=== PATIENT | male | born 1995 | race Caucasian/White ===

== ENCOUNTER 2016-06-22 22:47 | Inpatient (IN) | payer BC, OTHER ==
[~2016-06-22] VITALS: Ht 182.9 cm; Wt 76.8 kg
[~2016-06-22 22:47] MED LIST: ALPR-411 PO; BNT10 PO; IBUP-1050 PO; OXYC5TAB PO; SERT-234 PO
[2016-06-22] MEDS ORDERED: DULO60CA44 PO (23:21)
[2016-06-22] MEDS ORDERED: CLON1TAB3 PO (23:21)
--- NOTE | 2016-06-23 00:04 | EMERGENCY ROOM VISIT NOTE ---
History Report prepared by Marco: Alfonzo Moore Under the Supervision of: Dr. Andreina Rascon D.O. First contact with patient: 23:23 Chief Complaint: MENTAL HEALTH EVALUATION Stated Complaint: MHID History of Present Illness The patient is a 21 year old male with a history of anxiety and depression since high school who presents to the Emergency Room for an acute mental health evaluation. The patient has been struggling with a gambling addiction for some time. Today he lost more money than he had in his account which exacerbated his depression to the point that he considered overdosing today. The patient has had thoughts of suicide in the past but has never made any attempts. The patient called [facility] today and was referred to the ED. The patient sees a therapist in [employer] [facility]. He notes that he feels like a disappointment to his family. The family is aware of his gambling addiction. The patient is a [employer] student who recently finished another semester and passed all of his classes. He does not drink alcohol but occasionally smokes marijuana. The patient has been experiencing intermittent abdominal pain and decreased appetite. Source of History: patient Onset: today Position: other (psyche) Quality: other (suicidal ideation) Timing: other (acute) Modifying Factors (Worsening): other (gambling addiction) Associated Symptoms: + abdominal pain Review of Systems See HPI for pertinent positives & negatives. A total of 10 systems reviewed and were otherwise negative. Past Medical & Surgical Medical Problems: (1) Anxiety Family History Hypertension Social History Smoking Status: Never Smoker Alcohol Use: none Drug Use: none Marital Status: single Housing Status: lives with roommate Occupation Status: [employer] student Current/Historical Medications Scheduled Clonazepam (Klonopin), 1 MG PO QID Duloxetine Hcl (Cymbalta), 60 MG PO DAILY Scheduled PRN Alprazolam (Xanax), 0.5 MG PO BID PRN for Anxiety Allergies Coded Allergies: Milk (Verified Adverse Reaction, Intermediate, ESOPAGITIS, 06/22/16) Physical Exam Vital Signs Date Time Temp Pulse Resp B/P Pulse Ox O2 Delivery O2 Flow Rate FiO2 06/22/16 23:00 37.2 113 19 135/102 97 Room Air Physical Exam General: Pleasant, cooperative. HEENT: Head - normocephalic and atraumatic Pupils are equal, round, and reactive to light. Extraocular eye muscles are intact, and sclera are anicteric. Nose - moist nasal mucosa without discharge. Mouth - moist buccal mucosa. Oropharynx is nonerythematous and there is no tonsillar exudate or edema noted. Neck: Supple; no JVD, nuchal rigidity, cervical lymphadenopathy. Heart: Regular rate and rhythm. There is a normal S1 and S2 with no murmurs, clicks, or gallops appreciated. Lungs: Clear to auscultation bilaterally with no wheezes, rales, or rhonchi. Abdomen: Soft, completely nontender, nondistended, with good bowel sounds. There are no palpable pulsatile masses or hepatosplenomegaly. There is no guarding, rigidity, or rebound noted. Extremities: No evidence of cyanosis, clubbing, or edema. There are easily palpable peripheral pulses. Skin: warm and dry with good turgor and no rashes. Psych: Extremely flat affect, admits to suicidal ideation with plans to overdose. Medical Decision & Procedures Laboratory Results 06/22/16 23:21 06/22/16 23:21 Test 06/22/16 22:54 06/22/16 23:21 Urine Color ORANGE Urine Appearance CLEAR (CLEAR) Urine pH 6.0 (4.5-7.5) Urine Specific [place] 1.031 (1.000-1.030) Urine Protein NEG (NEG) Urine Glucose (UA) NEG (NEG) Urine Ketones TRACE (NEG) Urine Occult Blood NEG (NEG) Urine Nitrite NEG (NEG) Urine Bilirubin NEG (NEG) Urine Urobilinogen NEG (NEG) Urine Leukocyte Esterase TRACE (NEG) Urine WBC (Auto) 1-5 /hpf (0-5) Urine RBC (Auto) 0-4 /hpf (0-4) Urine Hyaline Casts (Auto) 1-5 /lpf (0-5) Urine Epithelial Cells (Auto) 5-10 /lpf (0-5) Urine Bacteria (Auto) NEG (NEG) Urine Opiates Screen NEG (NEG) Urine Methadone, Qualitative NEG (NEG) Urine Barbiturates NEG (NEG) Urine Phencyclidine (PCP) Level NEG (NEG) Ur Amphetamine/Methamphetamine NEG (NEG) MDMA (Ecstasy) Screen NEG (NEG) Urine Benzodiazepines Screen POS (NEG) Urine Cocaine Metabolite NEG (NEG) Urine Marijuana (THC) POS (NEG) Red Blood Count 5.20 M/uL (4.7-6.1) Mean Corpuscular Volume 90.8 fL (80-100) Mean Corpuscular Hemoglobin 33.1 pg (25-34) Mean Corpuscular Hemoglobin Concent 36.4 g/dl (32-36) RDW Standard Deviation 39.7 fL (36.4-46.3) RDW Coefficient of Variation 11.9 % (11.5-14.5) Mean Platelet Volume 10.2 fL (7.4-10.4) Anion Gap 6.0 mmol/L (3-11) Estimated GFR () 100.3 Estimated GFR (Non- 86.5 BUN/Creatinine Ratio 11.6 (10-20) Calcium Level 9.1 mg/dl (8.5-10.1) Total Bilirubin 1.4 mg/dl (0.2-1) Direct Bilirubin 0.2 mg/dl (0-0.2) Aspartate Amino Transf (AST/SGOT) 8 U/L (15-37) Alanine Aminotransferase (ALT/SGPT) 20 U/L (12-78) Alkaline Phosphatase 54 U/L (45-117) Total Protein 7.4 gm/dl (6.4-8.2) Albumin 4.5 gm/dl (3.4-5.0) Thyroid Stimulating Hormone (TSH) 2.710 uIu/ml (0.300-4.500) Salicylates Level < 1.7 mg/dl (2.8-20) Acetaminophen Level < 2 ug/ml (10-30) Ethyl Alcohol mg/dL < 3.0 mg/dl (0-3) Laboratory results per my review. Procedure Medications administered include Vistaril PO. ED Course 2335: Past medical records reviewed. The patient was evaluated in room A7. A complete history and physical exam was performed. Labs were drawn as above. 2350: The patient will be evaluated by Ashkan Vali. 0040: The patient is medically cleared. 0048: The patient was asleep. I woke him up and gave him the results. 0200: Ashkan Vail has accepted the patient. 0212: Vistaril 25 mg PO. Medical Decision The patient is a 21 year old male who presents to the ED for a mental health evaluation. Differential diagnosis includes mood disorder, addiction, thought disorder, suicidal ideations. Laboratory interpretation: Normal white count, stable H&H, normal TSH and renal function, total bilirubin 1.4, other LFTs normal, glucose normal. Tox screen positive for marijuana and benzos. Negative alcohol Tylenol and aspirin. Urine has trace ketones and leukocyte esterase. This is a 21-year-old male patient with a history of depression who presents to the emergency department with worsening depression and suicidal ideation. The patient is willing to admit herself voluntarily for inpatient psychiatric care Impression Primary Impression: Suicidal ideation Scribe Attestation The scribe's documentation has been prepared under my direction and personally reviewed by me in its entirety. I confirm that the note above accurately reflects all work, treatment, procedures, and medical decision making performed by me. Departure Information Dispostion Mental Health Acute Care Referrals No Doctor, Assigned (PCP) Patient Instructions [facility]
[2016-06-23 00:05] LABS: HEMATOCRIT 47.2 % (42-52); MEAN CELL VOLUME 90.8 fL (80-100); MEAN CORPUSCULAR HEMOGLOBIN 33.1 pg (25-34); MEAN CORPUSCULAR HGB CONC 36.4 g/dl (32-36); MEAN PLATELET VOLUME 10.2 fL (7.4-10.4); PLATELET COUNT 167 K/uL (130-400); WHITE BLOOD COUNT 8.44 K/uL (4.8-10.8)
[2016-06-23 00:07] LABS: URINE APPEARANCE CLEAR (CLEAR); URINE COLOR ORANGE; URINE NITRITE NEG (NEG); URINE SPECIFIC GRAVITY 1.031 (1.000-1.030); UROBILINOGEN NEG (NEG)
[2016-06-23 00:08] LABS: MANUAL MICROSCOPIC REQUIRED? NO; REVIEW REQ? NO
[2016-06-23 00:09] LABS: URINE BILIRUBIN NEG (NEG)
[2016-06-23 00:26] LABS: ALT/SGPT 20 U/L (12-78); AST/SGOT 8 U/L (15-37); BLOOD UREA NITROGEN 14 mg/dl (7-18); BUN/CREATININE RATIO 11.6 (10-20); CALCIUM 9.1 mg/dl (8.5-10.1); CARBON DIOXIDE 31 mmol/L (21-32); CHLORIDE 105 mmol/L (98-107); GLUCOSE 76 mg/dl (70-99); POTASSIUM 3.9 mmol/L (3.5-5.1); SODIUM 142 mmol/L (136-145)
[2016-06-23 00:28] LABS: BENZODIAZEPINE, URINE POS (NEG); COCAINE,URINE NEG (NEG); PHENCYCLIDINE, URINE NEG (NEG)
[2016-06-23 00:36] LABS: ACETAMINOPHEN < 2 ug/ml (10-30)
[2016-06-23 00:37] LABS: ALKALINE PHOSPHATASE 54 U/L (45-117)
[2016-06-23] MEDS ORDERED: NURSING VERBAL MED ORDER ONE (02:00)
[2016-06-23] MEDS ORDERED: hydrOXYzine HCL 25 MG TAB PO STA (02:12)
[2016-06-23 02:29] VITALS: BP 128/87; PULSE 85; TEMP 37.2; Ht 182.9 cm; Wt 76.8 kg
[2016-06-23 02:47] VITALS: O2SAT 99
[2016-06-23] MEDS ORDERED: BISMUTH SUBSALICYLATE PER ML OMNICELL CHARGE PO PRN (03:00)
[2016-06-23] MEDS ORDERED: MAGNESIUM HYDROXIDE SUSP 30 ML UDC PO PRN (03:00)
[2016-06-23] MEDS ORDERED: hydrOXYzine HCL 25 MG TAB PO PRN (03:00)
[2016-06-23] MEDS ORDERED: SODIUM CHLORIDE 0.65% NA SOLN 45 ML (OCEAN) PRN (03:00)
[2016-06-23] MEDS ORDERED: ALUMINUM/MAGNESIUM SUSP 30 ML UDC PO PRN (03:00)
[2016-06-23] MEDS: hydrOXYzine HCL 25 MG TAB PO PRN ×2 (03:05→22:57)
[2016-06-23 06:48] VITALS: BP_SYST 108; BP_SYST 113; BP_DIAS 71; BP_DIAS 78; PULSE 48; PULSE 86; TEMP 36.8
[2016-06-23] MEDS ORDERED: CLONAZEPAM 1 MG TAB PO ONE (10:35)
[2016-06-23] MEDS ORDERED: DULOXETINE HCL 60 MG CAP PO ONE (11:00)
--- NOTE | 2016-06-23 11:22 | Psychiatric History & Physical ---
History Date of Service June 23, 2016. Identifying Data Marvin Khan is a 21-year-old male [employer] student from [place] who has a history of depression and anxiety, follows with Dr. Vale, and presented to the ER with suicidal ideation and a plan to overdose. He had called [facility] and was referred to the emergency room, where he was admitted voluntarily. Chief Complaint "I just feel really guilty and depressed all the time, just really suicidal". History of Present Illness Patient presented to the emergency room stating he has a gambling problem and lost a lot of money playing poker yesterday, which resulted in suicidal thoughts. He stated "I feel inside." He reports worsening depression over the past couple of months, with tearfulness, sadness, guilt, anhedonia, anergia, social withdrawal, hopelessness, and disrupted sleep. He endorses decreased appetite and a 30 pound weight loss in the past 8 months, and also has GI issues for which he was hospitalized last semester. He states he called a suicide hotline yesterday and they recommended he come to the hospital. He reports lifelong problems with depression and anxiety, with suicidal thoughts and middle school, which then returned yesterday in the context of losing money gambling. He states "money is not the problem, the guilt with my parents, lying to them, taking their money." He states he struggled with gambling last semester, has been spending money that his parents were sending him to "live off of, but I never use it for that, just gambling, it's the only thing that's fine for me." He says he's lost about $10,000 this school year by gambling. He told his parents about it over New Year's break, but felt they "never cared, " meaning they were only concerned about the money he lost, not that he is "not happy." He feels that his parents don't understand about his depression, despite his attempt to "reach out" to them. He states that yesterday he "broke down, had a realization that I need to get help." He was thinking about " taking my own life, that really scared me," thinking that he would overdose on his prescription medications, just down bottles of pills." He feels "alone, no one loves me, no one will really care." He feels he has no supports, and no one understands what he is going through. He says that he "always puts on a mask" so that others don't know how he is feeling, but his mood has been "unhappy for a long time." He denies problems with concentration, stating that he does well in school, despite not really studying or applying himself. He endorses chronic insomnia for years, where he gets only a few hours of sleep a night. He denies irritability and anger outbursts. He reports "constant anxiety " that has been going on "for as long as I can remember." He reports daily panic attacks with chest tightness, increased heart rate, shortness of breath, heart palpitations, fear of or heart attack, and GI discomfort. He states he is taking Xanax up to 4mg a day, which he knows is more than he is prescribed , and says he is not even sure what the prescribed dose is. Even with 4mg of Xanax and 4mg of Klonopin daily, he says his anxiety is still high and constant. He says Dr. Vale has instructed him to decrease the dose but he has not done it. He says he has been on Cymbalta for about 2 months and 60mg for about a month. He admits he has not told Dr. Vale about his gambling problem, and is not in therapy. He admits to smoking marijuana and taking more Xanax than is prescribed at times. Dr. Vale was contacted by unit staff, and reported that the patient is prescribed both clonazepam and alprazolam for severe anxiety, and that this has been the best, nation he has found for his anxiety. He has tried multiple SSRI and SNRIs, including sertraline, fluoxetine , and Xanax XR. At the last appointment on Thursday, they discussed tapering down on his Klonopin by 0.5 mg per week as tolerated. Dr. Vale is aware that he overuses his Xanax at times, but believes it is in the context of managing his anxiety. He denies a history of devon, eating disorder, or psychotic symptoms. Spoke with Dr. Vale who started seeing him 4-6 months ago, previously treated by [facility], and had not disclosed his gambling issues to him or to [facility]. He had initially tried him on fluoxetine, but had GI side effects so switched to duloxetine, and has been trying to switch him from Xanax to Klonopin. He confirmed his current doses as entered in med rec. Past Psychiatric History Current OP Treatment: psychiatrist (Dr. Vale) Prior OP Treatment: psychiatrist, therapist ("I've tried that, it's hard for me." Saw Jeffrey Jamil last semester a couple times and felt unable to open up.) Prior Psych Hospitalizations: none Access to a Gun: No Suicide Attempts: No Past Medication Trials amitriptyline - in HS for headaches fluoxetine - per Dr. Vale, patient doesn't recall sertraline - ineffective at 200mg, stopped on his own venlafaxine XR - took for 1-2 weeks and stopped because switched to sertraline ( not sure why) Xanax XR lorazepam Past Medical/Surgical History None. Allergies Allergies: Coded Allergies: Milk (Verified Adverse Reaction, Intermediate, ESOPAGITIS, 06/22/16) Home Medications Scheduled Clonazepam (Klonopin), 1 MG PO QID Duloxetine Hcl (Cymbalta), 60 MG PO DAILY Scheduled PRN Alprazolam (Xanax), 0.5 MG PO BID PRN for Anxiety Family History Hypertension History of Suicide: No History of Substance Abuse: No Psychiatric History: No Alcohol Use Alcohol Use In Past 12 Months: Yes (Rare use - last drink on ARIELLE, typically drinks to intoxication when drinks.) AUDIT Total Score: 0 Smoking Use Smoking Status: Never Smoker Substance History Smoke marijuana 1-2 times a month. Admits to taking more Xanax than he is prescribed. Personal History Lives in: From [place]; [employer] student who lives off campus in apartment with roommate. 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 Relationship History: never Children: None. Spiritual Affiliation: Denies Legal History: none Psychological Trauma History: Other (Denies.) Additional Comments: Lives at home with parents and 17 year old brother. Review of Systems 10 systems reviewed and are negative except as stated above. Examination Vital Signs Vital Signs Past 12 Hours Date Time Temp Pulse Resp B/P Pulse Ox O2 Delivery O2 Flow Rate FiO2 5/8/17 06:48 36.8 48 16 108/71 86 113/78 06/23/16 02:47 78 16 113/75 99 06/23/16 02:29 37.2 85 19 128/87 Laboratory Results Last 24 Hours Test 06/22/16 22:54 06/22/16 23:21 Urine Color ORANGE Urine Appearance CLEAR Urine pH 6.0 Urine Specific [place] 1.031 Urine Protein NEG Urine Glucose (UA) NEG Urine Ketones TRACE Urine Occult Blood NEG Urine Nitrite NEG Urine Bilirubin NEG Urine Urobilinogen NEG Urine Leukocyte Esterase TRACE Urine WBC (Auto) 1-5 /hpf Urine RBC (Auto) 0-4 /hpf Urine Hyaline Casts (Auto) 1-5 /lpf Urine Epithelial Cells (Auto) 5-10 /lpf Urine Bacteria (Auto) NEG Urine Opiates Screen NEG Urine Methadone, Qualitative NEG Urine Barbiturates NEG Urine Phencyclidine (PCP) Level NEG Ur Amphetamine/Methamphetamine NEG MDMA (Ecstasy) Screen NEG Urine Benzodiazepines Screen POS Urine Cocaine Metabolite NEG Urine Marijuana (THC) POS White Blood Count 8.44 K/uL Red Blood Count 5.20 M/uL Hemoglobin 17.2 g/dL Hematocrit 47.2 % Mean Corpuscular Volume 90.8 fL Mean Corpuscular Hemoglobin 33.1 pg Mean Corpuscular Hemoglobin Concent 36.4 g/dl RDW Standard Deviation 39.7 fL RDW Coefficient of Variation 11.9 % Platelet Count 167 K/uL Mean Platelet Volume 10.2 fL Sodium Level 142 mmol/L Potassium Level 3.9 mmol/L Chloride Level 105 mmol/L Carbon Dioxide Level 31 mmol/L Anion Gap 6.0 mmol/L Blood Urea Nitrogen 14 mg/dl Creatinine 1.20 mg/dl Estimated GFR () 100.3 Estimated GFR (Non- 86.5 BUN/Creatinine Ratio 11.6 Random Glucose 76 mg/dl Calcium Level 9.1 mg/dl Total Bilirubin 1.4 mg/dl Direct Bilirubin 0.2 mg/dl Aspartate Amino Transf (AST/SGOT) 8 U/L Alanine Aminotransferase (ALT/SGPT) 20 U/L Alkaline Phosphatase 54 U/L Total Protein 7.4 gm/dl Albumin 4.5 gm/dl Thyroid Stimulating Hormone (TSH) 2.710 uIu/ml Salicylates Level < 1.7 mg/dl Acetaminophen Level < 2 ug/ml Ethyl Alcohol mg/dL < 3.0 mg/dl Mental Examination During interview pt is: alert and oriented, cooperative Appearance: appropriately dressed, appropriately groomed, appeared stated age Eye contact is: poor Motor behavior is: steady gait & station, no abnormal motor movements Speech: other (slowed, monotone) Affect: depressed, constricted Mood is: depressed, anxious Thought process: goal directed Thought content: reality based without delusions Suicidal thought are: present, Plan: present, Intent: denied Homicidal thoughts are: denied Hallucinations: denies auditory, denies visual Cognition: memory grossly intact, attention grossly intact, language grossly intact Intelligence estimated to be: consistent with level of education Insight: impaired Judgement: impaired Impression / Recommendations Impression 21 y/o [employer] student from [place] with depression, anxiety and a gambling problem who presents with suicidal thoughts to OD on medications in the context of losing $10,000 of his parents' money by gambling. Inventory Assets Strengths: good student, supportive family Risk Factors Assessment Male: Yes : Yes /single/: Yes Mental Health Diagnoses: Yes Previous attempt: No Family history of suicide: No Previous psychiatric stay: No Hopelessness: Yes Smoker: No Protective Factors Assessment Mosque beliefs: No : No Responsible for young children: No Employed: No Stable relationships: No Supportive family: No Good rapport with provider: Yes Recommendations (1) Depression 06/23 -Increase duloxetine to 90 mg daily. -Educated the patient about his diagnoses and the need to engage in therapy, work on healthy ways to cope, and the discharge safety plan. -Encourage group attendance and participation. -Family meeting with parents. We'll need a good safety plan prior to going home , including no access to guns or large amounts of medications, and a plan to have somebody monitor and dispense his benzodiazepines due to overuse. -Care coordinated with outpatient psychiatrist, Dr. Vale. (2) Panic disorder Increase duloxetine to 90 mg daily. Confirm doses of clonazepam and alprazolam with Dr. Vale. For now we will continue them due to patient's reports of high anxiety, but Dr. Vale was in favor of starting a slow clonazepam taper, as he had instructed the patient at his last appointment to start decreasing by 0.5 mg a week. Discussed the importance of being in therapy to address his chronic mood and anxiety disorders and a gambling problem. He is resistant to this idea, we'll continue to explore. (3) Benzodiazepine dependence Confirm doses with Dr. Vale. Continue clonazepam 1 mg 4 times a day and alprazolam 0.5 mg twice a day when necessary panic for now, but he is to start a taper off of clonazepam by decreasing by 0.5 mg a week, and can initiate this here once he is less anxious. Drug screen positive for cannabis. Patient minimizes his use, but was advised of the risks of ongoing substance use, and the recommendations to abstain from alcohol and other abusable substances, especially while taking daily benzodiazepines. Would avoid controlled substances when possible due to the risks of misuse or abuse. (4) Impulse control disorder CPT Code Initial Hospital Care: 45089 Problem Qualifiers (1) Depression: Depression Type: major depressive disorder Major depression recurrence: recurrent Major depression episode severity: severe Psychotic features: without psychotic features
[2016-06-23] MEDS: CLONAZEPAM 1 MG TAB PO SCH ×3 (12:03→21:12)
[2016-06-23] MEDS: ALPRAZOLAM 0.5 MG TAB PO PRN ×2 (13:02→20:22)
--- NOTE | 2016-06-23 14:31 | Medical Student: BHU Only ---
Psychiatric Evaluation IDENTIFYING DATA: Marvin Khan is a 21yo male who currently lives in [place] with a roommate. Marvin Khan was brought to the hospital by EMS and admitted to the [facility] on a 201 commitment. Patient has longstanding history of depression and anxiety and admits to a gambling addiction. Information provided by the patient is considered to be reliable. CHIEF COMPLAINT: "Feeling really guilty, really depressed, and anxious all the time" "Feeling suicidal". HISTORY OF PRESENT ILLNESS: Pt states that he has been "unhappy for a long time" and yesterday he "broke down". Patient had feelings of being alone and of no one caring for him which lead to SI with a plan of "downing pills" using medications he has been prescribed. Concerned by these thoughts, PT contacted a crisis hotline twice resulting in a suggestion of going to the emergency department. Patient reports feeling anxious and depressed for "as long as I can remember" and admits to SI once or twice during middle school but nothing since until yesterday. Nic also states he lost a lot of money recently playing poker after not playing significantly since last semester resulting in significant guilt. Patient feels he "messed up" and that he is "sick of lying" to parents, "sick of taking money and losing it", and that he just wants to get better. Patient admits to loosing 10k in last 2yrs, claiming it is the only thing he found fun. Marvin reports telling his parents of how he was feeling as well as his gambling and loses over winter break, saying they focused more on the money and "didn't get it". Patient additionally reports decreased appetite resulting in a 30lbs weight loss since the beginning of the academic year, years of insomnia that has worsened recently, constant baseline anxiety despite medications, and daily panic attacks that lead to chest tightness, increased HR, palpitations, feeling like he is going to or have a heart attack which are improved with Xanax. Also reports depression and decreased energy ("hard to get up in the morning") which has impacted academic performance. Denies irritability, decreased concentration, and symptoms of devon. Risk of violence to self within the last 6 months: no Risk of violence to others within the last 6 months: no CURRENT MEDICATIONS: Reported Home Medications Medications Dose Route/Sig Max Daily Dose Days Date Category Klonopin (Clonazepam) 1 Mg Tab 1 Mg PO QID 06/22/16 Reported Cymbalta (Duloxetine Hcl) 60 Mg Cap 60 Mg PO DAILY 06/22/16 Reported Xanax (Alprazolam) 0.5 Mg Tab 0.5 Mg PO BID PRN 12/16/15 Reported Patient admits to taking 2-3mg as single dose for daily acute anxiety episodes PAST PSYCHIATRIC HISTORY: Psychiatrist: Dr. Vale Therapist: None - previously Jeffrey Jamil Fall 2015 Current outpatient mental health treatment: Cymbalta, Xanax, Klonopin. Prior psychiatric hospitalizations: None. Prior suicide attempts: No. Prior medication trials: Zoloft 200mg - "didn't work", chose to stop Amitriptyline - used for headaches Effexor - taken for 1 or 2 weeks then stopped, switched to Zoloft by provider PAST MEDICAL HISTORY: Current primary care practitioner is [facility]. medical history: None history of head injury: None history of seizure: None history of iv drug use: None ALLERGIES: Milk. FAMILY HISTORY: Mental Health: None Substance Abuse: None Suicide: None SUBSTANCE USE HISTORY: Tobacco use hx: Never Illicit substance use hx: Marijuana - 1 to 2x per month PERSONAL HISTORY: From: [place] Siblings: 1 brother 17yo Support System: Denies adequate support from family - parents "don't understand what I'm going through" and doesn't wish to see them which makes him feel guilty Education: [employer] with major in academics, usually a B student - admits to not applying himself. 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 Children: None. Spiritual Affiliation: None. Legal History: None. Physical abuse history: None Emotional/psychological abuse history: None Sexual abuse history: None. PHYSICAL EXAM: Complete physical exam completed in emergency department by Dr. Rascon. MENTAL STATUS EXAM: Appearance is that of a healthy but thin male who appears his stated age. The patient is cooperative with the interview. Eye contact is inconsistent - makes initial contact with questions, flits away or looks down. Motor behavior is normal Speech: normal tone, low volume and somewhat slow rate. Mood: "Feeling really guilty, really depressed, and anxious". Affect: Appropriate, restricted-blunted, congruent with stated mood - became visibly upset when discussing Xanax dosages Thought process: goal directed Thought content: largely appropriate - admits to SI yesterday Perception: No evidence of depersonalization, illusions, or hallucinations. Cognition: The patient is alert and oriented Insight is estimated to be limited: Emotionally- identifies what he is feeling. Behaviorally poor - money/degree of impulsive gambling behavior treated as non -priority/insignificant. Judgment is estimated to be limited: Emotionally- sought help when SI began. Behaviorally - 10k loss in gambling, states he will be able to earn more to make up for it. RISK ASSESSMENT: * Risk factors: Male, , single,Health Problems, Mental Health Diagnoses (depression, personality disorder), Substance Use Disorders, Hopelessness, Lack of support system * Protective factors: Good rapport with provider DIAGNOSTIC IMPRESSION: Patient is 21yo male with long-term history of depression and anxiety who developed acute feelings of SI following academic and additional stressors associated with his gambling addiction. Potential antisocial/narcissistic personality tendencies with willful disregard of law, lying behavior in order to maintain gambling habit, displacement of blame to parents (told them - didn' t do anything, don't understand me, have never understood me, focused on the money), and incomprehension of financial losses significance. Limited behavioral insight/judgment (can earn more to make up for losses) in regards to impulsive control issue leading to gambling behaviors. Patient became visibly upset when Xanax dosages were discussed stating he has been taking more than prescribed daily for his anxiety and the PRN amount would not be enough - addiction is a concern. DSM-V DIAGNOSIS: RECOMMENDATIONS: 1. Anxiety a. Continue Klonopin 1mg QID for maintenance with Xanax PRN as needed for acute episodes b. Vistaril PRN for acute exacerbation 2. Depression/SI a. Increase Cymbalta dose to 90mg b. Suicide precautions 15min checks c. Family meeting to possibly enhance support system 3. Impulse Control Disorder/Gambling addiction a. Decrease benzo dosages to mitigate impulse behavior b. Increase antidepressant dosages - pt claims he gambles because it is the only thing he enjoys 4. Milk allergy a. Lactose free diet plan 5. Aftercare Planning: a. Aftercare appointment with Dr. Vale - establish plan for long distance care when PT returns to [place] b. Establish care with therapist for counseling c. Gambling addiction intervention information - gamblers anonymous, etc. Date of Service: June 23, 2016.
[2016-06-24] MEDS: hydrOXYzine HCL 25 MG TAB PO PRN ×3 (03:03→23:29)
[2016-06-24 03:09] VITALS: BP_SYST 122; BP_DIAS 80; BP_DIAS 86; PULSE 65; TEMP 36.3
[2016-06-24 07:58] VITALS: BP 123/77; PULSE 64; TEMP 36.6
[2016-06-24] MEDS: CLONAZEPAM 1 MG TAB PO SCH ×3 (08:01→21:59)
[2016-06-24] MEDS: DULOXETINE (CYMBALTA) 30 MG CAP PO SCH (08:01)
[2016-06-24] MEDS ORDERED: DULOXETINE HCL 60 MG CAP PO SCH (09:00)
[2016-06-24] MEDS: ALPRAZOLAM 0.5 MG TAB PO PRN ×2 (10:05→19:19)
--- NOTE | 2016-06-24 13:08 | Psychiatric Progress Notes ---
Progress Note Date of Service June 24, 2016. Interval History 21 yo male admitted on a voluntary basis on 06/23/16 with severe depression, suicidality and gambling addiction. Chief Complaint "Not good (family meeting)". Subjective Patient was seen & assessed interval progress reviewed with Treatment Team. The patient had a family meeting that he felt "sucked". His mother was the only one there, not wanting to see his father. They talked about his gambling and the trust that he has broken with him parents. He takes full credit for that, although minimizes the severity of it. What he is upset about is that he does not feel that his father is remotely willing to see that the patient is depressed, and Marvin believes that his depression drives his gambling. He feels emotionally abused and belittled by his father's attitude, going so far as to say that he feels "intimidated" by him. It has been suggested that he meet with his father while here in the hospital but the patient doesn't think that he's ready, and says "I don't like to think about it". He says that his mood is upset, anxious. he reports that he woke up in a panic last night, requiring prn medication. He has not thought of suicide today. 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 he says that his gambling was greater last semester, less this semester, and contends that he does it for fun, "its the only thing that I find to be fun" and does not see it as a problem. Review of Systems Constitutional: No chills, No fatigue, No fever, No problem reported, No sweats , No weakness, No weight loss ENT: No dental problems, No hearing loss, No nasal symptoms, No problem reported, No sore throat, No tinnitus, No trouble swallowing, No unusual epistaxis Respiratory: No cough, No dyspnea at rest, No dyspnea on exertion, No hemoptysis, No problem reported, No shortness of breath, No sputum, No wheezing Cardiovascular: No PND, No chest pain, No claudication, No edema, No orthopnea , No palpitations, No problem reported Abdomen: No GI bleeding, No constipation, No diarrhea, No nausea, No pain, No problem reported, No vomiting Musculoskeletal: No calf pain, No joint pain, No muscle pain, No problem reported, No swelling Neurologic: No balance problems, No memory loss, No numbness/tingling, No paralysis, No problem reported, No vertigo, No weakness Psychiatric: + anxiety, + depression symptoms Integumentary: No bleeding, No color change, No itch, No new/changing skin lesions, No problem reported, No rash Sleep Information Total Hours of Sleep: 5.50 Meal Information Percent of Breakfast Consumed: 100 Percent of Lunch Consumed: 100 Percent of Dinner Consumed: 100 Mental Status Exam During interview pt is: alert and oriented, cooperative Appearance: appropriately dressed, appropriately groomed, appeared stated age Eye contact is: poor Motor behavior is: steady gait & station, no abnormal motor movements Speech: other (slowed, monotone) Affect: depressed, flat, constricted Mood is: depressed, anxious Thought process: goal directed Thought content: reality based without delusions Suicidal thought are: present, Plan: present, Intent: denied Homicidal thoughts are: denied Hallucinations: denies auditory, denies visual Cognition: memory grossly intact, attention grossly intact, language grossly intact Intelligence estimated to be: consistent with level of education Insight: impaired Judgement: impaired Impression Difficult meeting with mother. He holds a lot of anger at his parents for perceived lack of support or belief in his depression, and wants to see his gambling as a symptom of his depression. We review criteria for Gambling Disorder, and he meets the required 4 criteria of 12. I have encourage him to continue to process his family meeting individually and in group and to continue to consider a meeting with his father. Dr. Vale his OP psychiatrist has recommeded a slow klonopin taper, 0.5 mg. per week and so will reduce his mid day dose by 0.5. Plan (1) Depression 06/23 -Increase duloxetine to 90 mg daily. -Educated the patient about his diagnoses and the need to engage in therapy, work on healthy ways to cope, and the discharge safety plan. -Encourage group attendance and participation. -Family meeting with parents. We'll need a good safety plan prior to going home , including no access to guns or large amounts of medications, and a plan to have somebody monitor and dispense his benzodiazepines due to overuse. -Care coordinated with outpatient psychiatrist, Dr. Vale. 06/24 - Family meeting with mother today - Encourage meeting with father as well (2) Panic disorder Increase duloxetine to 90 mg daily. Confirm doses of clonazepam and alprazolam with Dr. Vale. For now we will continue them due to patient's reports of high anxiety, but Dr. Vale was in favor of starting a slow clonazepam taper, as he had instructed the patient at his last appointment to start decreasing by 0.5 mg a week. Discussed the importance of being in therapy to address his chronic mood and anxiety disorders and a gambling problem. He is resistant to this idea, we'll continue to explore. 06/24 - BZD dosing confirmed with OP provider. Will reduce total daily dose by 0.5 mg weekly - Continue other meds. (3) Benzodiazepine dependence Confirm doses with Dr. Vale. Continue clonazepam 1 mg 4 times a day and alprazolam 0.5 mg twice a day when necessary panic for now, but he is to start a taper off of clonazepam by decreasing by 0.5 mg a week, and can initiate this here once he is less anxious. Drug screen positive for cannabis. Patient minimizes his use, but was advised of the risks of ongoing substance use, and the recommendations to abstain from alcohol and other abusable substances, especially while taking daily benzodiazepines. Would avoid controlled substances when possible due to the risks of misuse or abuse. 06/24 - REduce Klonopin by 0.5 mg daily (4) Impulse control disorder Visit Code E&M Code: 50242 Inventory Assets Strengths: good student, supportive family Risk Factors Assessment Male: Yes : Yes /single/: Yes Mental Health Diagnoses: Yes Previous attempt: No Family history of suicide: No Previous psychiatric stay: No Hopelessness: Yes Smoker: No Protective Factors Assessment Spiritism beliefs: No : No Responsible for young children: No Employed: No Stable relationships: No Supportive family: No Good rapport with provider: Yes Data Vital Signs Last 24 Hrs: Date Time Temp Pulse Resp B/P Pulse Ox O2 Delivery O2 Flow Rate FiO2 06/24/16 07:58 36.6 64 16 123/77 06/24/16 06:51 06/24/16 03:09 36.3 65 16 122/80 65 122/86 Meds Administered Last 24 Hrs: Meds Administered (Past 24Hrs) Medications (Trade) Dose Ordered Sig/Emeli Route Start Time Stop Time Status Last Admin Dose Admin Hydroxyzine HCl (Vistaril Tab) 25 mg NOW STAT PO 06/23/16 02:12 06/23/16 02:13 DC 06/23/16 02:17 25 MG Hydroxyzine HCl (Vistaril Tab) 50 mg HSZ PRN PO 06/23/16 03:00 07/23/16 02:59 06/24/16 03:03 50 MG Hydroxyzine HCl (Vistaril Tab) 25 mg Q4H PRN PO 06/23/16 03:00 07/23/16 02:59 06/23/16 09:02 25 MG Alprazolam (Xanax Tab) 0.5 mg BID PRN PO 06/23/16 10:30 07/23/16 10:29 06/24/16 10:05 0.5 MG Clonazepam (Klonopin Tab) 1 mg QID PO 06/23/16 12:00 07/23/16 11:59 06/24/16 12:11 1 MG Clonazepam (Klonopin Tab) 1 mg 1035 ONCE PO 06/23/16 10:35 06/23/16 10:36 DC 06/23/16 10:39 1 MG Duloxetine HCl (Cymbalta Cap) 60 mg 1100 ONCE PO 06/23/16 11:00 06/23/16 11:01 DC 06/23/16 10:54 60 MG Duloxetine HCl (Cymbalta Cap) 90 mg DAILY PO 06/24/16 09:00 07/24/16 08:59 06/24/16 08:01 90 MG Lab Results Last 24 Hrs: 06/22/16 23:21 06/22/16 23:21 Test 06/22/16 22:54 06/22/16 23:21 Urine Color ORANGE Urine Appearance CLEAR (CLEAR) Urine pH 6.0 (4.5-7.5) Urine Specific [place] 1.031 (1.000-1.030) Urine Protein NEG (NEG) Urine Glucose (UA) NEG (NEG) Urine Ketones TRACE (NEG) Urine Occult Blood NEG (NEG) Urine Nitrite NEG (NEG) Urine Bilirubin NEG (NEG) Urine Urobilinogen NEG (NEG) Urine Leukocyte Esterase TRACE (NEG) Urine WBC (Auto) 1-5 /hpf (0-5) Urine RBC (Auto) 0-4 /hpf (0-4) Urine Hyaline Casts (Auto) 1-5 /lpf (0-5) Urine Epithelial Cells (Auto) 5-10 /lpf (0-5) Urine Bacteria (Auto) NEG (NEG) Urine Opiates Screen NEG (NEG) Urine Methadone, Qualitative NEG (NEG) Urine Barbiturates NEG (NEG) Urine Phencyclidine (PCP) Level NEG (NEG) Ur Amphetamine/Methamphetamine NEG (NEG) MDMA (Ecstasy) Screen NEG (NEG) Urine Benzodiazepines Screen POS (NEG) Urine Cocaine Metabolite NEG (NEG) Urine Marijuana (THC) POS (NEG) Red Blood Count 5.20 M/uL (4.7-6.1) Mean Corpuscular Volume 90.8 fL (80-100) Mean Corpuscular Hemoglobin 33.1 pg (25-34) Mean Corpuscular Hemoglobin Concent 36.4 g/dl (32-36) RDW Standard Deviation 39.7 fL (36.4-46.3) RDW Coefficient of Variation 11.9 % (11.5-14.5) Mean Platelet Volume 10.2 fL (7.4-10.4) Anion Gap 6.0 mmol/L (3-11) Estimated GFR () 100.3 Estimated GFR (Non- 86.5 BUN/Creatinine Ratio 11.6 (10-20) Calcium Level 9.1 mg/dl (8.5-10.1) Total Bilirubin 1.4 mg/dl (0.2-1) Direct Bilirubin 0.2 mg/dl (0-0.2) Aspartate Amino Transf (AST/SGOT) 8 U/L (15-37) Alanine Aminotransferase (ALT/SGPT) 20 U/L (12-78) Alkaline Phosphatase 54 U/L (45-117) Total Protein 7.4 gm/dl (6.4-8.2) Albumin 4.5 gm/dl (3.4-5.0) Thyroid Stimulating Hormone (TSH) 2.710 uIu/ml (0.300-4.500) Salicylates Level < 1.7 mg/dl (2.8-20) Acetaminophen Level < 2 ug/ml (10-30) Ethyl Alcohol mg/dL < 3.0 mg/dl (0-3) Problem Qualifiers (1) Depression: Depression Type: major depressive disorder Major depression recurrence: recurrent Major depression episode severity: severe Psychotic features: without psychotic features
--- NOTE | 2016-06-24 13:10 | Medical Student: BHU Only ---
Psychiatric Progress Note SUBJECTIVE: The patient was seen and assessed today, and progress was reviewed with nursing. The patient reports "I feel better than yesterday". Sleep was "OK"; noted to be for 5.5 hours by staff which is longer than patient states is usually (max. 3hr). Patient does report waking at approx. 3am from a nightmare, which is abnormal for him, feeling as if a panic attack was going to start. He had difficulty falling back to sleep and received Vistaril from staff which allowed him to settle enough to read his book and eventually fall back to sleep. Patient states he is having a good morning, woke up, showered, brushed teeth, and ate without overt feelings of anxiety which is unusual for him. He attributed this to feeling "safe" here with the staff and doctors being present whereas he wouldn't have felt the same way at home. Patient has participated in most group activities and says he felt very supported, he reports being able to open up more and talk about himself which is normally very difficult. He has been spending time with the other patients and feels extremely supported, he reports one patient is being discharged and while he's happy they get to go home , he is sad they are leaving. Patient had a productive meeting with mom 06/23, saying it was "really tough" but he feels "closer to her" now. He was able to talk with the superintendent generating plant prior to mom's arrival and have him present during the discussion, which provided the support such that the PT felt he could really open up about what he has been going through with his mom. He also states that she is "more on board" than he thought. A family meeting is planned for today with mom (PT denied father's presence) which he is nervous about. Presently ranks his mood as a 4-5 which is higher than yesterday (3) and states his mood as "nervous". At the end of the interview, PT asked about 72hr notice procedure, stating while he is not ready to leave now, he might be soon (said Thurs/Fri) and didn't know how it [ providing notice] worked and asked to speak with a staff member. ROS: Improved sleep quantity despite nightmare related wake-up. Improved appetite, typically consuming 100% of meals. He has been attending the majority of group activities and is interacting regularly with other patients on floor. At this time, denies: SOB, tachycardia, palpitations, chest tightness, or feelings of panic or doom. Mild anxiety in association with family meeting. Additional pertinent ROS included above. MSE: Appearance is that of a healthy, thin, appropriately dressed male who appears his stated age. The patient is calm, pleasant, cooperative with the interview. Eye contact is inconsistent - improved since admission interview 06/24 with more contact being made and held for comparatively longer periods. Motor behavior is normal. Speech: normal volume, rate, rhythm. Mood: "Nervous" 4-5 out of 10 Affect: Appropriately reactive, restricted, somewhat incongruent with stated mood of nervous/anxious, congruent with depressive state reported to be typical for him. Thought process: goal directed. Thought content: Denies SI/HI, no evidence of compulsions or delusions Perception: Denies/no evidence of hallucinations. Cognition: Patient is alert and orientated. Insight is estimated to be appropriate [gambling addiction not discussed]. Judgment is estimated to be appropriate [gambling addiction not discussed]. ASSESSMENT: Patient is a 21yo male admitted as a 201 for SI with plan. PT has long-standing history of depression and anxiety and admits to a significant gambling addiction. Patient is doing better following visit with mother and interaction with patients/staff of [facility], reporting that he feels safe and supported in the environment. Sleep and appetite have improved, anxiety is less than yesterday and mood has also improved. Patient is still unsure of what he is supposed to be doing throughout the day on unit, but is participating and interacting positively with others. He also states he doesn't know how he feels about the Vistaril PRN - he said he wanted a Xanax when he woke at 3am and that is what he would normally take - could not comment on the comparative effectiveness or how he felt while on it [Vistaril]. Questions about 72hr notice may indicate a positive step towards an appropriate discharge. PLAN: 1. Anxiety - Generalized anxiety disorder + Panic Disorder a. Continue Klonopin and Xanax as prescribed. b. Vistaril PRN for acute episodes 2. Major Depressive Disorder a. Continue medications as prescribed - Cymbalta dose increased from admit baseline. b. Family meeting - improve PT support system for when he returns to [place] 3. Insomnia a. Continue medication regiment as prescribed to improve mood b. Vistaril PRN 4. Benzo/Gambling Addiction a. Consult with PT psychiatrist concerning benzo history - maintain lower prescribed dose b. Vistaril PRN replacement for Xanax - break cyclic pattern while treating symptoms 5. Aftercare Planning: a. Establish plan for outpatient treatment when patient returns to [place] and current provider remains local b. Establish care with outpatient therapist c. Family meeting - increase level of at home support prior to discharge 6. Medication Monitoring: Current Inpatient Medications Medications (Trade) Dose Ordered Sig/Emeli Route Start Time Stop Time Status Last Admin Dose Admin Acetaminophen (Tylenol Tab) 650 mg Q4H PRN PO 06/23/16 03:00 07/23/16 02:59 Al Hydroxide/Mg Hydroxide (Maalox Susp) 30 ml Q4H PRN PO 06/23/16 03:00 07/23/16 02:59 Bismuth Subsalicylate (Kaopectate Liqd) 15 ml DAILY PRN PO 06/23/16 03:00 07/23/16 02:59 Magnesium Hydroxide (Milk Of Magnesia Susp) 30 ml DAILY PRN PO 06/23/16 03:00 07/23/16 02:59 Sodium Chloride ([place] Nasal Ribera) PRN PRN NA 06/23/16 03:00 07/23/16 02:59 Hydroxyzine HCl (Vistaril Tab) 50 mg HSZ PRN PO 06/23/16 03:00 07/23/16 02:59 06/24/16 03:03 50 MG Hydroxyzine HCl (Vistaril Tab) 25 mg Q4H PRN PO 06/23/16 03:00 07/23/16 02:59 06/23/16 09:02 25 MG Alprazolam (Xanax Tab) 0.5 mg BID PRN PO 06/23/16 10:30 07/23/16 10:29 06/24/16 10:05 0.5 MG Clonazepam (Klonopin Tab) 1 mg QID PO 06/23/16 12:00 07/23/16 11:59 06/24/16 12:11 1 MG Duloxetine HCl (Cymbalta Cap) 90 mg DAILY PO 06/24/16 09:00 07/24/16 08:59 06/24/16 08:01 90 MG
[2016-06-24] MEDS: CLONAZEPAM 0.5 MG TAB PO SCH (17:10)
[2016-06-25 06:57] VITALS: BP_SYST 111; BP_DIAS 67; BP_DIAS 71; PULSE 63; PULSE 68; TEMP 36.3
[2016-06-25] MEDS: CLONAZEPAM 1 MG TAB PO SCH ×3 (09:23→20:33)
[2016-06-25] MEDS: DULOXETINE (CYMBALTA) 30 MG CAP PO SCH (09:23)
--- NOTE | 2016-06-25 10:09 | Psychiatric Progress Notes ---
Progress Note Date of Service June 25, 2016. Interval History 21 yo male admitted on a voluntary basis on 06/23/16 with severe depression, suicidality and gambling addiction. Chief Complaint "I don't know.". Subjective Patient was seen & assessed interval progress reviewed with Treatment Team. The patient has felt calmer after his meeting with his mother yesterday. He has decided to move forward with the meeting with his father, saying "It has to be done.". He has been working on a list of talking points including both positive and negative. He is overwhelmed today thinking about this and not sure how to communicate with his dad. He has now decided to return home for the summer and will pursue treatment there before returning to school in the fall. He remains tearful talking about his family relationships, but denies acute SI today. His appetite is poor but trying to eat with each meal. He is concerned about the reduction in BZD due to anxiety, but reviewed again the recommendations from his psychiatrist, and our concerns about tolerance. He did use a prn of xanax last evening. Review of Systems Constitutional: + fatigue ENT: No dental problems, No hearing loss, No nasal symptoms, No problem reported, No sore throat, No tinnitus, No trouble swallowing, No unusual epistaxis Respiratory: No cough, No dyspnea at rest, No dyspnea on exertion, No hemoptysis, No problem reported, No shortness of breath, No sputum, No wheezing Cardiovascular: No PND, No chest pain, No claudication, No edema, No orthopnea , No palpitations, No problem reported Abdomen: + problem reported (poor appetite) Musculoskeletal: No calf pain, No joint pain, No muscle pain, No problem reported, No swelling Neurologic: No balance problems, No memory loss, No numbness/tingling, No paralysis, No problem reported, No vertigo, No weakness Psychiatric: + anxiety, + depression symptoms Integumentary: No bleeding, No color change, No itch, No new/changing skin lesions, No problem reported, No rash Sleep Information Total Hours of Sleep: 5.50 Meal Information Percent of Breakfast Consumed: 100 Percent of Lunch Consumed: 25 Percent of Dinner Consumed: 95 Mental Status Exam During interview pt is: alert and oriented, cooperative Appearance: appropriately dressed, appropriately groomed, appeared stated age Eye contact is: poor Motor behavior is: steady gait & station, no abnormal motor movements Speech: other (slowed, monotone) Affect: depressed, flat Mood is: depressed, anxious Thought process: goal directed Thought content: reality based without delusions Suicidal thought are: present, Plan: present, Intent: denied Homicidal thoughts are: denied Hallucinations: denies auditory, denies visual Cognition: memory grossly intact, attention grossly intact, language grossly intact Intelligence estimated to be: consistent with level of education Insight: impaired Judgement: impaired Impression Francisco schedule meeting with father, which will be very stressful for Marvin. He remains depressed and anxious in ways that make it difficult for him to function. Will continue current meds, but look toward reducing BZD by another 0.5 mg prior to discharge, and I have told the patient this. Plan (1) Depression 06/23 -Increase duloxetine to 90 mg daily. -Educated the patient about his diagnoses and the need to engage in therapy, work on healthy ways to cope, and the discharge safety plan. -Encourage group attendance and participation. -Family meeting with parents. We'll need a good safety plan prior to going home , including no access to guns or large amounts of medications, and a plan to have somebody monitor and dispense his benzodiazepines due to overuse. -Care coordinated with outpatient psychiatrist, Dr. Vale. 06/24 - Family meeting with mother today - Encourage meeting with father as well 06/25 -Schedule meeting with father - Continue current meds (2) Panic disorder Increase duloxetine to 90 mg daily. Confirm doses of clonazepam and alprazolam with Dr. aVle. For now we will continue them due to patient's reports of high anxiety, but Dr. Vale was in favor of starting a slow clonazepam taper, as he had instructed the patient at his last appointment to start decreasing by 0.5 mg a week. Discussed the importance of being in therapy to address his chronic mood and anxiety disorders and a gambling problem. He is resistant to this idea, we'll continue to explore. 06/24 - BZD dosing confirmed with OP provider. Will reduce total daily dose by 0.5 mg weekly - Continue other meds. (3) Benzodiazepine dependence Confirm doses with Dr. Vale. Continue clonazepam 1 mg 4 times a day and alprazolam 0.5 mg twice a day when necessary panic for now, but he is to start a taper off of clonazepam by decreasing by 0.5 mg a week, and can initiate this here once he is less anxious. Drug screen positive for cannabis. Patient minimizes his use, but was advised of the risks of ongoing substance use, and the recommendations to abstain from alcohol and other abusable substances, especially while taking daily benzodiazepines. Would avoid controlled substances when possible due to the risks of misuse or abuse. 06/24 - REduce Klonopin by 0.5 mg daily (4) Impulse control disorder Visit Code E&M Code: 80856 Inventory Assets Strengths: good student, supportive family Risk Factors Assessment Male: Yes : Yes /single/: Yes Mental Health Diagnoses: Yes Previous attempt: No Family history of suicide: No Previous psychiatric stay: No Hopelessness: Yes Smoker: No Protective Factors Assessment Scientologist beliefs: No : No Responsible for young children: No Employed: No Stable relationships: No Supportive family: No Good rapport with provider: Yes Data Vital Signs Last 24 Hrs: Date Time Temp Pulse Resp B/P Pulse Ox O2 Delivery O2 Flow Rate FiO2 06/25/16 06:57 36.3 68 16 111/67 63 111/71 Meds Administered Last 24 Hrs: Meds Administered (Past 24Hrs) Medications (Trade) Dose Ordered Sig/Emeli Route Start Time Stop Time Status Last Admin Dose Admin Alprazolam (Xanax Tab) 0.5 mg BID PRN PO 06/23/16 10:30 07/23/16 10:29 06/24/16 19:19 0.5 MG Clonazepam (Klonopin Tab) 1 mg QID PO 06/23/16 12:00 06/24/16 13:10 DC 06/24/16 12:11 1 MG Clonazepam (Klonopin Tab) 1 mg 1035 ONCE PO 06/23/16 10:35 06/23/16 10:36 DC 06/23/16 10:39 1 MG Duloxetine HCl (Cymbalta Cap) 60 mg 1100 ONCE PO 06/23/16 11:00 06/23/16 11:01 DC 06/23/16 10:54 60 MG Duloxetine HCl (Cymbalta Cap) 90 mg DAILY PO 06/24/16 09:00 07/24/16 08:59 06/25/16 09:23 90 MG Clonazepam (Klonopin Tab) 1 mg TID@0900,1300,2200 PO 06/24/16 22:00 07/24/16 21:59 06/25/16 09:23 1 MG Clonazepam (Klonopin Tab) 0.5 mg DAILY@1700 PO 06/24/16 17:00 07/24/16 16:59 06/24/16 17:10 0.5 MG Lab Results Last 24 Hrs: 06/22/16 23:21 06/22/16 23:21 Test 06/22/16 22:54 06/22/16 23:21 Urine Color ORANGE Urine Appearance CLEAR (CLEAR) Urine pH 6.0 (4.5-7.5) Urine Specific [place] 1.031 (1.000-1.030) Urine Protein NEG (NEG) Urine Glucose (UA) NEG (NEG) Urine Ketones TRACE (NEG) Urine Occult Blood NEG (NEG) Urine Nitrite NEG (NEG) Urine Bilirubin NEG (NEG) Urine Urobilinogen NEG (NEG) Urine Leukocyte Esterase TRACE (NEG) Urine WBC (Auto) 1-5 /hpf (0-5) Urine RBC (Auto) 0-4 /hpf (0-4) Urine Hyaline Casts (Auto) 1-5 /lpf (0-5) Urine Epithelial Cells (Auto) 5-10 /lpf (0-5) Urine Bacteria (Auto) NEG (NEG) Urine Opiates Screen NEG (NEG) Urine Methadone, Qualitative NEG (NEG) Urine Barbiturates NEG (NEG) Urine Phencyclidine (PCP) Level NEG (NEG) Ur Amphetamine/Methamphetamine NEG (NEG) MDMA (Ecstasy) Screen NEG (NEG) Urine Benzodiazepines Screen POS (NEG) Urine Cocaine Metabolite NEG (NEG) Urine Marijuana (THC) POS (NEG) Red Blood Count 5.20 M/uL (4.7-6.1) Mean Corpuscular Volume 90.8 fL (80-100) Mean Corpuscular Hemoglobin 33.1 pg (25-34) Mean Corpuscular Hemoglobin Concent 36.4 g/dl (32-36) RDW Standard Deviation 39.7 fL (36.4-46.3) RDW Coefficient of Variation 11.9 % (11.5-14.5) Mean Platelet Volume 10.2 fL (7.4-10.4) Anion Gap 6.0 mmol/L (3-11) Estimated GFR () 100.3 Estimated GFR (Non- 86.5 BUN/Creatinine Ratio 11.6 (10-20) Calcium Level 9.1 mg/dl (8.5-10.1) Total Bilirubin 1.4 mg/dl (0.2-1) Direct Bilirubin 0.2 mg/dl (0-0.2) Aspartate Amino Transf (AST/SGOT) 8 U/L (15-37) Alanine Aminotransferase (ALT/SGPT) 20 U/L (12-78) Alkaline Phosphatase 54 U/L (45-117) Total Protein 7.4 gm/dl (6.4-8.2) Albumin 4.5 gm/dl (3.4-5.0) Thyroid Stimulating Hormone (TSH) 2.710 uIu/ml (0.300-4.500) Salicylates Level < 1.7 mg/dl (2.8-20) Acetaminophen Level < 2 ug/ml (10-30) Ethyl Alcohol mg/dL < 3.0 mg/dl (0-3) Problem Qualifiers (1) Depression: Depression Type: major depressive disorder Major depression recurrence: recurrent Major depression episode severity: severe Psychotic features: without psychotic features
[2016-06-25] MEDS: ALPRAZOLAM 0.5 MG TAB PO PRN (10:53)
[2016-06-25 10:54] LABS: HYDROXYETHYLFLURAZEPAM CONF NEGATIVE NG/ML (CUTOFF=50); HYDROXYMIDAZOLAM NEGATIVE NG/ML (CUTOFF=50); HYDROXYTRIAZOLAM CONF NEGATIVE NG/ML (CUTOFF=50); TEMAZEPAM CONF NEGATIVE NG/ML (CUTOFF=50)
[2016-06-25] MEDS: CLONAZEPAM 0.5 MG TAB PO SCH (16:14)
[2016-06-25] MEDS: hydrOXYzine HCL 25 MG TAB PO PRN (22:45)
[2016-06-26] MEDS: ALPRAZOLAM 0.5 MG TAB PO PRN ×2 (01:16→10:14)
[2016-06-26 06:48] VITALS: BP_SYST 119; BP_SYST 129; BP_DIAS 78; BP_DIAS 91; PULSE 59; PULSE 62; TEMP 36.2
[2016-06-26] MEDS: DULOXETINE (CYMBALTA) 30 MG CAP PO SCH (07:43)
[2016-06-26] MEDS: CLONAZEPAM 1 MG TAB PO SCH ×3 (07:45→22:23)
[2016-06-26] MEDS: ACETAMINOPHEN 325 MG TAB PO PRN (07:46)
--- NOTE | 2016-06-26 08:05 | Psychiatric Progress Notes ---
Progress Note Date of Service June 26, 2016. Interval History 21 yo male admitted on a voluntary basis on 06/23/16 with severe depression, suicidality and gambling addiction. Chief Complaint "Yesterday was good, with my dad". Subjective Patient was seen & assessed interval progress reviewed with nursing. Staff report he was very anxious yesterday about meeting with his father, but the meeting went well, and father was supportive. The patient decided to return home for the summer, and mother is looking into aftercare in [place]. He remained anxious after the meeting, asking staff for Xanax and Vistaril at the same time, and also asked for Xanax overnight. He often asks for his clonazepam early, before it is due. Today, he says he is surprised at how well his meeting with his father went, and that he is looking forward to his visit today. His mood has improved, but says he is "having a lot of different moods, kind of annoyed because they wouldn't give me my Xanax last night when I wanted it," stating he feels he should be able to get it when he wants it, despite the BID limitation. He also reports feeling anxious because his access to the Xanax is limited. He says he is trying to work on relaxation techniques, including deep breathing and focusing on "good memories," and it does help, but he wants it to "go away" completely. He says he slept "terrible" last night. He says he is in agreement with tapering off the benzodiazepines, but still wants to be able to have them when he feels he needs them. He is now thinking about transferring to a different school next year, feeling that he is not happy because of [facility]s culture, thinking he would be happier in [place]. He is feeling more hopeful for the future, and denies SI. His mother is contacting a therapist at home that he had seen in the past, as he liked her. He does not yet feel ready to leave the hospital, feels he is benefitting from groups, and wants to stay a couple more days to keep working on his anxiety and feeling more stable. Sleep Information Total Hours of Sleep: 4.50 Meal Information Percent of Breakfast Consumed: 50 Percent of Lunch Consumed: 50 Percent of Dinner Consumed: 50 Mental Status Exam During interview pt is: alert and oriented, cooperative Appearance: appropriately dressed, appropriately groomed, appeared stated age Eye contact is: good Motor behavior is: steady gait & station, no abnormal motor movements Speech: normal in rate, rhythm & volume Affect: depressed, irritable, anxious, constricted Mood is: irritable, anxious Thought process: goal directed, perseveration (on the scheduling of benzodiazepine doses) Thought content: reality based without delusions Suicidal thought are: denied Homicidal thoughts are: denied Hallucinations: denies auditory, denies visual Cognition: memory grossly intact, attention grossly intact, language grossly intact Intelligence estimated to be: consistent with level of education Insight: impaired Judgement: impaired Impression Has had family meeting with both mother and father, addressing his perception that they don't understand or support him, which he felt was helpful. He remains depressed and anxious to such a degree that it is difficult for him to function, and does not yet feel ready to leave. Will continue current meds, and will continue the slow clonazepam taper as recommended by his outpatient psychiatrist. Plan (1) Depression 06/23 -Increase duloxetine to 90 mg daily. -Educated the patient about his diagnoses and the need to engage in therapy, work on healthy ways to cope, and the discharge safety plan. -Encourage group attendance and participation. -Family meeting with parents. We'll need a good safety plan prior to going home , including no access to guns or large amounts of medications, and a plan to have somebody monitor and dispense his benzodiazepines due to overuse. -Care coordinated with outpatient psychiatrist, Dr. Vale. 06/24 - Family meeting with mother today - Encourage meeting with father as well 06/25 - Meeting with father held and went well - Continue current meds 06/26 - Continue duloxetine 90mg - Mother scheduling with therapist in [place] whom he has seen before. - Will need f/u with Dr. Vale. (2) Panic disorder Increase duloxetine to 90 mg daily. Confirm doses of clonazepam and alprazolam with Dr. Vale. For now we will continue them due to patient's reports of high anxiety, but Dr. Vale was in favor of starting a slow clonazepam taper, as he had instructed the patient at his last appointment to start decreasing by 0.5 mg a week. Discussed the importance of being in therapy to address his chronic mood and anxiety disorders and a gambling problem. He is resistant to this idea, we'll continue to explore. 06/24 - BZD dosing confirmed with OP provider. Will reduce total daily dose by 0.5 mg weekly - Continue other meds. 06/26 - Continue clonazepam max 3.5mg daily prn, to be reduced further tomorrow to 1mg tid prn. Continue alprazolam 0.5mg bid prn per outpatient dosing. Had in depth discussion about anxiety and how to treat it, importance of working on other techniques for managing it in addition to medication, and again reviewed the risks of chronic daily benzo use. Patient is willing to continue with taper off benzos. Would recommend parents hold meds and dispense daily supply, due to his history of taking more than in prescribed and concern for disinhibition, which may be contributing to gambling and in turn, SI. (3) Benzodiazepine dependence Confirm doses with Dr. Vale. Continue clonazepam 1 mg 4 times a day and alprazolam 0.5 mg twice a day when necessary panic for now, but he is to start a taper off of clonazepam by decreasing by 0.5 mg a week, and can initiate this here once he is less anxious. Drug screen positive for cannabis. Patient minimizes his use, but was advised of the risks of ongoing substance use, and the recommendations to abstain from alcohol and other abusable substances, especially while taking daily benzodiazepines. Would avoid controlled substances when possible due to the risks of misuse or abuse. 06/24 - Initiate slow benzo taper as recommended by outpatient psychiatrist at his last appointment. (4) Impulse control disorder Have discussed pathologic gambling in the context of an impulse control problem , but patient is resistant to this, not wanting to pursue treatment at this time. Visit Code E&M Code: 44360 Inventory Assets Strengths: good student, supportive family Risk Factors Assessment Male: Yes : Yes /single/: Yes Mental Health Diagnoses: Yes Previous attempt: No Family history of suicide: No Previous psychiatric stay: No Hopelessness: Yes Smoker: No Protective Factors Assessment Caodaism beliefs: No : No Responsible for young children: No Employed: No Stable relationships: No Supportive family: No Good rapport with provider: Yes Data Vital Signs Last 24 Hrs: Date Time Temp Pulse Resp B/P Pulse Ox O2 Delivery O2 Flow Rate FiO2 06/26/16 06:48 36.2 62 16 119/78 59 129/91 Meds Administered Last 24 Hrs: Meds Administered (Past 24Hrs) Medications (Trade) Dose Ordered Sig/Emeli Route Start Time Stop Time Status Last Admin Dose Admin Duloxetine HCl (Cymbalta Cap) 90 mg DAILY PO 06/24/16 09:00 07/24/16 08:59 06/26/16 07:43 90 MG Clonazepam (Klonopin Tab) 1 mg TID@0900,1300,2200 PO 06/24/16 22:00 07/24/16 21:59 06/26/16 07:45 1 MG Clonazepam (Klonopin Tab) 0.5 mg DAILY@1700 PO 06/24/16 17:00 07/24/16 16:59 06/25/16 16:14 0.5 MG Problem Qualifiers (1) Depression: Depression Type: major depressive disorder Major depression recurrence: recurrent Major depression episode severity: severe Psychotic features: without psychotic features
[2016-06-26] MEDS: CLONAZEPAM 0.5 MG TAB PO SCH (17:03)
[2016-06-26] MEDS: hydrOXYzine HCL 25 MG TAB PO PRN (23:43)
[2016-06-27] MEDS: ALPRAZOLAM 0.5 MG TAB PO PRN (03:51)
[2016-06-27 07:03] VITALS: BP_SYST 110; BP_SYST 125; BP_DIAS 71; BP_DIAS 74; PULSE 51; PULSE 93; TEMP 36.3
[2016-06-27] MEDS: DULOXETINE (CYMBALTA) 30 MG CAP PO SCH (08:22)
[2016-06-27] MEDS: CLONAZEPAM 1 MG TAB PO SCH ×3 (08:22→21:54)
--- NOTE | 2016-06-27 13:02 | Psychiatric Progress Notes ---
Progress Note Date of Service June 27, 2016. Interval History 21 yo male admitted on a voluntary basis on 06/23/16 with severe depression, suicidality and gambling addiction. Chief Complaint "I want to go home. ". Subjective Patient was seen & assessed interval progress reviewed with Treatment Team. The patient says that since having the good family meeting with his father, that his mood is improved. He felt like "my father actually cared" during the meeting and he is now more optimistic that their relationship will improve and he will be able to tolerate being at home with them for the summer. He remains anxious and looks to BZD to treat this, with little ability to self soothe. We discuss that Klonopin will be reduced to 1 mg. TID in preparation for discharge, since Cymbalta is being titrated. He is worried about this. He denies any further SI, and is anxious to be discharged. His mother will be coming from to pick him up. Review of Systems Constitutional: No chills, No fatigue, No fever, No problem reported, No sweats , No weakness, No weight loss Respiratory: No cough, No dyspnea at rest, No dyspnea on exertion, No hemoptysis, No problem reported, No shortness of breath, No sputum, No wheezing Cardiovascular: No PND, No chest pain, No claudication, No edema, No orthopnea , No palpitations, No problem reported Abdomen: No GI bleeding, No constipation, No diarrhea, No nausea, No pain, No problem reported, No vomiting Musculoskeletal: No calf pain, No joint pain, No muscle pain, No problem reported, No swelling Neurologic: No balance problems, No memory loss, No numbness/tingling, No paralysis, No problem reported, No vertigo, No weakness Psychiatric: + anxiety, + depression symptoms Integumentary: No bleeding, No color change, No itch, No new/changing skin lesions, No problem reported, No rash Sleep Information Total Hours of Sleep: 5.00 Meal Information Percent of Breakfast Consumed: 100 Percent of Lunch Consumed: 100 Percent of Dinner Consumed: 100 Mental Status Exam During interview pt is: alert and oriented, cooperative Appearance: appropriately dressed, appropriately groomed, appeared stated age Eye contact is: good Motor behavior is: steady gait & station, no abnormal motor movements Speech: normal in rate, rhythm & volume Affect: blunted, anxious Mood is: anxious Thought process: goal directed Thought content: reality based without delusions Suicidal thought are: denied Homicidal thoughts are: denied Hallucinations: denies auditory, denies visual Cognition: memory grossly intact, attention grossly intact, language grossly intact Intelligence estimated to be: consistent with level of education Insight: impaired Judgement: impaired Impression Feeling better after meeting with father and now feeling able to go home. Will make the final med changes including decreasing Klonopin to 1 mg. TID, and increasing Cymbalta to 120 mg. daily. Still working of aftercare appts. If progress continues, could consider discharge as soon as tomorrow. Plan (1) Depression 06/23 -Increase duloxetine to 90 mg daily. -Educated the patient about his diagnoses and the need to engage in therapy, work on healthy ways to cope, and the discharge safety plan. -Encourage group attendance and participation. -Family meeting with parents. We'll need a good safety plan prior to going home , including no access to guns or large amounts of medications, and a plan to have somebody monitor and dispense his benzodiazepines due to overuse. -Care coordinated with outpatient psychiatrist, Dr. Vale. 06/24 - Family meeting with mother today - Encourage meeting with father as well 06/25 - Meeting with father held and went well - Continue current meds 06/26 - Continue duloxetine 90mg - Mother scheduling with therapist in [place] whom he has seen before. - Will need f/u with Dr. Vale. 06/27 - Increase Cymbalta to 120 mg. daily (2) Panic disorder Increase duloxetine to 90 mg daily. Confirm doses of clonazepam and alprazolam with Dr. Vale. For now we will continue them due to patient's reports of high anxiety, but Dr. Vale was in favor of starting a slow clonazepam taper, as he had instructed the patient at his last appointment to start decreasing by 0.5 mg a week. Discussed the importance of being in therapy to address his chronic mood and anxiety disorders and a gambling problem. He is resistant to this idea, we'll continue to explore. 06/24 - BZD dosing confirmed with OP provider. Will reduce total daily dose by 0.5 mg weekly - Continue other meds. 06/26 - Continue clonazepam max 3.5mg daily prn, to be reduced further tomorrow to 1mg tid prn. Continue alprazolam 0.5mg bid prn per outpatient dosing. Had in depth discussion about anxiety and how to treat it, importance of working on other techniques for managing it in addition to medication, and again reviewed the risks of chronic daily benzo use. Patient is willing to continue with taper off benzos. Would recommend parents hold meds and dispense daily supply, due to his history of taking more than in prescribed and concern for disinhibition, which may be contributing to gambling and in turn, SI. 06/27 - Reduce Klonopin to 1 mg. TID. Taper to continue as an OP (3) Benzodiazepine dependence Confirm doses with Dr. Vale. Continue clonazepam 1 mg 4 times a day and alprazolam 0.5 mg twice a day when necessary panic for now, but he is to start a taper off of clonazepam by decreasing by 0.5 mg a week, and can initiate this here once he is less anxious. Drug screen positive for cannabis. Patient minimizes his use, but was advised of the risks of ongoing substance use, and the recommendations to abstain from alcohol and other abusable substances, especially while taking daily benzodiazepines. Would avoid controlled substances when possible due to the risks of misuse or abuse. 06/24 - Initiate slow benzo taper as recommended by outpatient psychiatrist at his last appointment. (4) Impulse control disorder Have discussed pathologic gambling in the context of an impulse control problem , but patient is resistant to this, not wanting to pursue treatment at this time. Discharge / Aftercare Planning Psychiatrist: Name: Dr Tipton Visit Code E&M Code: 06687 Inventory Assets Strengths: good student, supportive family Risk Factors Assessment Male: Yes : Yes /single/: Yes Mental Health Diagnoses: Yes Previous attempt: No Family history of suicide: No Previous psychiatric stay: No Hopelessness: Yes Smoker: No Protective Factors Assessment Scientologist beliefs: No : No Responsible for young children: No Employed: No Stable relationships: No Supportive family: No Good rapport with provider: Yes Data Vital Signs Last 24 Hrs: Date Time Temp Pulse Resp B/P Pulse Ox O2 Delivery O2 Flow Rate FiO2 06/27/16 07:03 36.3 51 16 110/71 93 125/74 Meds Administered Last 24 Hrs: Current Inpatient Medications Medications (Trade) Dose Ordered Sig/Emeli Route Start Time Stop Time Status Last Admin Dose Admin Acetaminophen (Tylenol Tab) 650 mg Q4H PRN PO 06/23/16 03:00 07/23/16 02:59 06/26/16 07:46 650 MG Al Hydroxide/Mg Hydroxide (Maalox Susp) 30 ml Q4H PRN PO 06/23/16 03:00 07/23/16 02:59 Bismuth Subsalicylate (Kaopectate Liqd) 15 ml DAILY PRN PO 06/23/16 03:00 07/23/16 02:59 Magnesium Hydroxide (Milk Of Magnesia Susp) 30 ml DAILY PRN PO 06/23/16 03:00 07/23/16 02:59 Sodium Chloride (Pratt Nasal [place]) PRN PRN NA 06/23/16 03:00 07/23/16 02:59 Hydroxyzine HCl (Vistaril Tab) 50 mg HSZ PRN PO 06/23/16 03:00 07/23/16 02:59 06/26/16 23:43 50 MG Hydroxyzine HCl (Vistaril Tab) 25 mg Q4H PRN PO 06/23/16 03:00 07/23/16 02:59 06/23/16 09:02 25 MG Alprazolam (Xanax Tab) 0.5 mg BID PRN PO 06/23/16 10:30 07/23/16 10:29 06/27/16 03:51 0.5 MG Duloxetine HCl (Cymbalta Cap) 90 mg DAILY PO 06/24/16 09:00 07/24/16 08:59 06/27/16 08:22 90 MG Clonazepam (Klonopin Tab) 1 mg TID@0900,1300,2200 PO 06/24/16 22:00 07/24/16 21:59 06/27/16 08:22 1 MG Clonazepam (Klonopin Tab) 0.5 mg DAILY@1700 PO 06/24/16 17:00 07/24/16 16:59 06/26/16 17:03 0.5 MG Lab Results Last 24 Hrs: 06/22/16 23:21 06/22/16 23:21 Test 06/22/16 22:54 06/22/16 23:21 Urine Color ORANGE Urine Appearance CLEAR (CLEAR) Urine pH 6.0 (4.5-7.5) Urine Specific [place] 1.031 (1.000-1.030) Urine Protein NEG (NEG) Urine Glucose (UA) NEG (NEG) Urine Ketones TRACE (NEG) Urine Occult Blood NEG (NEG) Urine Nitrite NEG (NEG) Urine Bilirubin NEG (NEG) Urine Urobilinogen NEG (NEG) Urine Leukocyte Esterase TRACE (NEG) Urine WBC (Auto) 1-5 /hpf (0-5) Urine RBC (Auto) 0-4 /hpf (0-4) Urine Hyaline Casts (Auto) 1-5 /lpf (0-5) Urine Epithelial Cells (Auto) 5-10 /lpf (0-5) Urine Bacteria (Auto) NEG (NEG) Urine Opiates Screen NEG (NEG) Urine Methadone, Qualitative NEG (NEG) Urine Barbiturates NEG (NEG) Urine Phencyclidine (PCP) Level NEG (NEG) Ur Amphetamine/Methamphetamine NEG (NEG) MDMA (Ecstasy) Screen NEG (NEG) Urine Hydroxyalprazolam Confirm >2000 NG/ML (CUTOFF=25) Urine Benzodiazepines Screen POS (NEG) 7-Amino Clonazepam Level 1750 NG/ML (CUTOFF=25) Urine Nordiazepam Confirmation NEGATIVE NG/ML (CUTOFF=50) Urine Hydroxyethylflurazepam Level NEGATIVE NG/ML (CUTOFF=50) Urine Lorazepam (GC/MS) NEGATIVE NG/ML (CUTOFF=50) Urine Oxazepam Confirm (GC/MS) NEGATIVE NG/ML (CUTOFF=50) Urine Temazepam Confirmation NEGATIVE NG/ML (CUTOFF=50) Urine Hydroxytriazolam Confirmation NEGATIVE NG/ML (CUTOFF=50) Urine Hydroxymidazolam Confirmation NEGATIVE NG/ML (CUTOFF=50) Urine Cocaine Metabolite NEG (NEG) Urine Marijuana (THC) POS (NEG) Urine Marijuana (THC Carboxy Acid) 410 NG/ML (CUTOFF=5) Red Blood Count 5.20 M/uL (4.7-6.1) Mean Corpuscular Volume 90.8 fL (80-100) Mean Corpuscular Hemoglobin 33.1 pg (25-34) Mean Corpuscular Hemoglobin Concent 36.4 g/dl (32-36) RDW Standard Deviation 39.7 fL (36.4-46.3) RDW Coefficient of Variation 11.9 % (11.5-14.5) Mean Platelet Volume 10.2 fL (7.4-10.4) Anion Gap 6.0 mmol/L (3-11) Estimated GFR () 100.3 Estimated GFR (Non- 86.5 BUN/Creatinine Ratio 11.6 (10-20) Calcium Level 9.1 mg/dl (8.5-10.1) Total Bilirubin 1.4 mg/dl (0.2-1) Direct Bilirubin 0.2 mg/dl (0-0.2) Aspartate Amino Transf (AST/SGOT) 8 U/L (15-37) Alanine Aminotransferase (ALT/SGPT) 20 U/L (12-78) Alkaline Phosphatase 54 U/L (45-117) Total Protein 7.4 gm/dl (6.4-8.2) Albumin 4.5 gm/dl (3.4-5.0) Thyroid Stimulating Hormone (TSH) 2.710 uIu/ml (0.300-4.500) Salicylates Level < 1.7 mg/dl (2.8-20) Acetaminophen Level < 2 ug/ml (10-30) Ethyl Alcohol mg/dL < 3.0 mg/dl (0-3) Problem Qualifiers (1) Depression: Depression Type: major depressive disorder Major depression recurrence: recurrent Major depression episode severity: severe Psychotic features: without psychotic features
[2016-06-27] MEDS: ACETAMINOPHEN 325 MG TAB PO PRN (18:36)
[2016-06-27] MEDS: hydrOXYzine HCL 25 MG TAB PO PRN (23:25)
[2016-06-28] MEDS: ALPRAZOLAM 0.5 MG TAB PO PRN (05:12)
[2016-06-28 06:38] VITALS: BP_SYST 110; BP_SYST 117; BP_DIAS 75; BP_DIAS 80; PULSE 68; PULSE 90; TEMP 36.4
[2016-06-28] MEDS ORDERED: DULOXETINE HCL 60 MG CAP PO SCH (09:00)
[2016-06-28] MEDS: CLONAZEPAM 1 MG TAB PO SCH (09:00)
[2016-06-28] MEDS ORDERED: CYM60 PO (10:07)
[2016-06-28] MEDS ORDERED: KLN1 PO (10:07)
--- NOTE | 2016-06-28 10:19 | Discharge Instructions ---
Discharge Information Report Includes Report will include the: Discharge Instructions & Summary Admission Admission Date / Time: June 23, 2016 at 01:46 Reason for Admission: Major Depressive Disorder, Single Episode Discharge Discharge Diagnosis / Problem: Major Depressive Disorder, Single Episode Condition at Discharge: Good Discharge Goals Goal(s): Improve function Activity Recommendations Activity Limitations: resume your previous activity Lifting Limitations: none Exercise/Sports Limitations: none Shower/Bathe: no limitations . Instructions / Follow-Up Instructions / Follow-Up . SPECIAL CARE INSTRUCTIONS: 1. Follow through with your scheduled aftercare appointments. If unable to keep an appointment, please call to reschedule. 2. Take your medication only as prescribed. Medication should not be changed or stopped without the approval of your doctor. In the event of worsening symptoms or concerns about side effects, contact your doctor immediately. 3. Utilize new healthy coping skills, anger management skills, and stress management skills learned during your hospitalization. Journal feelings and process them with a support person. Identify stressors or situations that may result in relapse, deterioration or inappropriate behaviors and develop a plan to deal with those issues. 4. If your coping skills are ineffective and you are in crisis, contact your outpatient providers for direction. If unable to reach your providers, please call the CAN HELP LINE AT or go to the closest Emergency Room. 5. Avoid alcohol and un-prescribed drugs. 6. You have been provided with the Mental Health Advance Directives Pamphlet for your review. AFTERCARE APPOINTMENTS: * Please call your insurance company prior to your scheduled appointment to confirm your aftercare providers are covered. Take your insurance information to your appointments. . Discharge / Aftercare Planning Primary Care Physician: Name: recommend that you get a PCP back home Psychiatrist: Name: Dr Tipton Date of Appointment: Jul 31, 2016 Time of Appointment: 3:30pm Therapist: Name Of Therapist: Wendi Sainz [facility] Date of Appointment: July 02, 2016 Time of Appointment: 4:30pm . Follow-Up Care Plan for Follow-Up Care: Patient to follow up with his outpatient psychiatrist Dr. Vale on 07/31/16 and re-establish care with his therapist Vandana Sainz on 07/02/16 Current Hospital Diet Patient's current hospital diet: Low Lactose Diet Discharge Diet Recommended Diet: Low Lactose Diet Procedures Procedures Performed: No Pending Studies Pending Studies at Discharge: No Medical Emergencies . Who to Call and When: Medical Emergencies: For questions or emergencies related to your hospital stay, please contact the Inpatient Behavioral Health Unit at [phone]. A phlebotomy technician is on-call 08/09 for the Behavioral Health Unit for emergencies At any time you feel your situation is an emergency, you may also call 911 immediately. . Non-Emergent Contact Non-Emergency issues call your: Psychiatrist Contact Number: [phone] Advance Directives Do You Have an Existing Mental: No Existing Living Will: No Existing Power of Dealer Sales Manager: No Advance Directives Info Given: To Pt/S.O. Advance Directives Reason: Declines as Mental Health Visit. Discharge Summary Admission HPI Per the Admitting provider: Patient presented to the emergency room stating he has a gambling problem and lost a lot of money playing poker yesterday, which resulted in suicidal thoughts. He stated "I feel inside." He reports worsening depression over the past couple of months, with tearfulness, sadness, guilt, anhedonia, anergia, social withdrawal, hopelessness, and disrupted sleep. He endorses decreased appetite and a 30 pound weight loss in the past 8 months, and also has GI issues for which he was hospitalized last semester. He states he called a suicide hotline yesterday and they recommended he come to the hospital. He reports lifelong problems with depression and anxiety, with suicidal thoughts and middle school, which then returned yesterday in the context of losing money gambling. He states "money is not the problem, the guilt with my parents, lying to them, taking their money." He states he struggled with gambling last semester, has been spending money that his parents were sending him to "live off of, but I never use it for that, just gambling, it's the only thing that's fine for me." He says he's lost about $10,000 this school year by gambling. He told his parents about it over New Year's break, but felt they "never cared, " meaning they were only concerned about the money he lost, not that he is "not happy." He feels that his parents don't understand about his depression, despite his attempt to "reach out" to them. He states that yesterday he "broke down, had a realization that I need to get help." He was thinking about " taking my own life, that really scared me," thinking that he would overdose on his prescription medications, just down bottles of pills." He feels "alone, no one loves me, no one will really care." He feels he has no supports, and no one understands what he is going through. He says that he "always puts on a mask" so that others don't know how he is feeling, but his mood has been "unhappy for a long time." He denies problems with concentration, stating that he does well in school, despite not really studying or applying himself. He endorses chronic insomnia for years, where he gets only a few hours of sleep a night. He denies irritability and anger outbursts. He reports "constant anxiety " that has been going on "for as long as I can remember." He reports daily panic attacks with chest tightness, increased heart rate, shortness of breath, heart palpitations, fear of or heart attack, and GI discomfort. He states he is taking Xanax up to 4mg a day, which he knows is more than he is prescribed , and says he is not even sure what the prescribed dose is. Even with 4mg of Xanax and 4mg of Klonopin daily, he says his anxiety is still high and constant. He says Dr. Vale has instructed him to decrease the dose but he has not done it. He says he has been on Cymbalta for about 2 months and 60mg for about a month. He admits he has not told Dr. Vale about his gambling problem, and is not in therapy. He admits to smoking marijuana and taking more Xanax than is prescribed at times. Dr. Vale was contacted by unit staff, and reported that the patient is prescribed both clonazepam and alprazolam for severe anxiety, and that this has been the best, nation he has found for his anxiety. He has tried multiple SSRI and SNRIs, including sertraline, fluoxetine , and Xanax XR. At the last appointment on Thursday, they discussed tapering down on his Klonopin by 0.5 mg per week as tolerated. Dr. Vale is aware that he overuses his Xanax at times, but believes it is in the context of managing his anxiety. He denies a history of devon, eating disorder, or psychotic symptoms. Spoke with Dr. Vale who started seeing him 4-6 months ago, previously treated by [facility], and had not disclosed his gambling issues to him or to [facility]. He had initially tried him on fluoxetine, but had GI side effects so switched to duloxetine, and has been trying to switch him from Xanax to Klonopin. He confirmed his current doses as entered in med rec. Hospital Course (1) Depression 06/23 -Increase duloxetine to 90 mg daily. -Educated the patient about his diagnoses and the need to engage in therapy, work on healthy ways to cope, and the discharge safety plan. -Encourage group attendance and participation. -Family meeting with parents. We'll need a good safety plan prior to going home , including no access to guns or large amounts of medications, and a plan to have somebody monitor and dispense his benzodiazepines due to overuse. -Care coordinated with outpatient psychiatrist, Dr. Vale. 06/24 - Family meeting with mother today - Encourage meeting with father as well 06/25 - Meeting with father held and went well - Continue current meds 06/26 - Continue duloxetine 90mg - Mother scheduling with therapist in [place] whom he has seen before. - Will need f/u with Dr. Vale. 06/27 - Increase Cymbalta to 120 mg. daily (2) Panic disorder Increase duloxetine to 90 mg daily. Confirm doses of clonazepam and alprazolam with Dr. Vale. For now we will continue them due to patient's reports of high anxiety, but Dr. Vale was in favor of starting a slow clonazepam taper, as he had instructed the patient at his last appointment to start decreasing by 0.5 mg a week. Discussed the importance of being in therapy to address his chronic mood and anxiety disorders and a gambling problem. He is resistant to this idea, we'll continue to explore. 06/24 - BZD dosing confirmed with OP provider. Will reduce total daily dose by 0.5 mg weekly - Continue other meds. 06/26 - Continue clonazepam max 3.5mg daily prn, to be reduced further tomorrow to 1mg tid prn. Continue alprazolam 0.5mg bid prn per outpatient dosing. Had in depth discussion about anxiety and how to treat it, importance of working on other techniques for managing it in addition to medication, and again reviewed the risks of chronic daily benzo use. Patient is willing to continue with taper off benzos. Would recommend parents hold meds and dispense daily supply, due to his history of taking more than in prescribed and concern for disinhibition, which may be contributing to gambling and in turn, SI. 06/27 - Reduce Klonopin to 1 mg. TID. Taper to continue as an OP (3) Benzodiazepine dependence Confirm doses with Dr. Vale. Continue clonazepam 1 mg 4 times a day and alprazolam 0.5 mg twice a day when necessary panic for now, but he is to start a taper off of clonazepam by decreasing by 0.5 mg a week, and can initiate this here once he is less anxious. Drug screen positive for cannabis. Patient minimizes his use, but was advised of the risks of ongoing substance use, and the recommendations to abstain from alcohol and other abusable substances, especially while taking daily benzodiazepines. Would avoid controlled substances when possible due to the risks of misuse or abuse. 06/24 - Initiate slow benzo taper as recommended by outpatient psychiatrist at his last appointment. (4) Impulse control disorder Have discussed pathologic gambling in the context of an impulse control problem , but patient is resistant to this, not wanting to pursue treatment at this time. Risk Factors Assessment Male: Yes : Yes /single/: Yes Mental Health Diagnoses: Yes Previous attempt: No Family history of suicide: No Previous psychiatric stay: No Hopelessness: Yes Smoker: No Protective Factors Assessment Jainism beliefs: No : No Responsible for young children: No Employed: No Stable relationships: No Supportive family: No Good rapport with provider: Yes Laboratory Test 06/22/16 22:54 06/22/16 23:21 Urine Color ORANGE Urine Appearance CLEAR Urine pH 6.0 Urine Specific [place] 1.031 Urine Protein NEG Urine Glucose (UA) NEG Urine Ketones TRACE Urine Occult Blood NEG Urine Nitrite NEG Urine Bilirubin NEG Urine Urobilinogen NEG Urine Leukocyte Esterase TRACE Urine WBC (Auto) 1-5 Urine RBC (Auto) 0-4 Urine Hyaline Casts (Auto) 1-5 Urine Epithelial Cells (Auto) 5-10 Urine Bacteria (Auto) NEG Urine Opiates Screen NEG Urine Methadone, Qualitative NEG Urine Barbiturates NEG Urine Phencyclidine (PCP) Level NEG Ur Amphetamine/Methamphetamine NEG MDMA (Ecstasy) Screen NEG Urine Hydroxyalprazolam Confirm >2000 Urine Benzodiazepines Screen POS 7-Amino Clonazepam Level 1750 Urine Nordiazepam Confirmation NEGATIVE Urine Hydroxyethylflurazepam Level NEGATIVE Urine Lorazepam (GC/MS) NEGATIVE Urine Oxazepam Confirm (GC/MS) NEGATIVE Urine Temazepam Confirmation NEGATIVE Urine Hydroxytriazolam Confirmation NEGATIVE Urine Hydroxymidazolam Confirmation NEGATIVE Urine Cocaine Metabolite NEG Urine Marijuana (THC) POS Urine Marijuana (THC Carboxy Acid) 410 White Blood Count 8.44 Red Blood Count 5.20 Hemoglobin 17.2 Hematocrit 47.2 Mean Corpuscular Volume 90.8 Mean Corpuscular Hemoglobin 33.1 Mean Corpuscular Hemoglobin Concent 36.4 RDW Standard Deviation 39.7 RDW Coefficient of Variation 11.9 Platelet Count 167 Mean Platelet Volume 10.2 Sodium Level 142 Potassium Level 3.9 Chloride Level 105 Carbon Dioxide Level 31 Anion Gap 6.0 Blood Urea Nitrogen 14 Creatinine 1.20 Estimated GFR () 100.3 Estimated GFR (Non- 86.5 BUN/Creatinine Ratio 11.6 Random Glucose 76 Calcium Level 9.1 Total Bilirubin 1.4 Direct Bilirubin 0.2 Aspartate Amino Transferase (AST) 8 Alanine Aminotransferase (ALT) 20 Alkaline Phosphatase 54 Total Protein 7.4 Albumin 4.5 Thyroid Stimulating Hormone (TSH) 2.710 Salicylates Level < 1.7 Acetaminophen Level < 2 Ethyl Alcohol mg/dL < 3.0 Total Time Total Time Spent (min): Greater than 30 minutes Total Time Included: examination of the patient, discharge planning, medication reconciliation, and (reviewed [place] PDMP database as prescribing a controlled substance) Tobacco Cessation at Discharge Smoking Status: Never Smoker FDA approved Prescription: non-smoker Problem Qualifiers (1) Depression: Depression Type: major depressive disorder Major depression recurrence: recurrent Major depression episode severity: severe Psychotic features: without psychotic features
[2016-06-28] MEDS ORDERED: NURSING VERBAL MED ORDER ONE (12:45)
== END 2016-06-28 12:20 | disposition home or self-care (01) | DRG 885 ==
LOC: ENRESERVDT → ENRESERVTM → EDBD 22:47 → C.EDA 22:48 → C.MHU 06-23 01:46
PROVIDERS: ADMIT Psychiatry & Neurology Child & Adolescent Psychiatry; ATTEND Psychiatry & Neurology Psychiatry
DX: F33.2 Major depressive disorder, recurrent severe without psychotic features (principal); F12.10 Cannabis abuse, uncomplicated; F41.0 Panic disorder [episodic paroxysmal anxiety]; F63.9 Impulse disorder, unspecified